=== PATIENT | male | born 1995 | race Caucasian/White ===

== ENCOUNTER 2018-08-04 13:39 | Emergency (ER) | payer SELFPAY ==
--- NOTE | 2018-08-04 14:00 | EDPHY ---
HPI/HX/ROS/PE/MDM Narrative: CHIEF COMPLAINT: Dizziness, right-sided numbness. HPI: This patient is a healthy 23-year-old male. He complains of numbness and dizziness for the past three days, beginning Saturday night. He endorses right- side numbness, primarily in his lower right jaw. His right arm and leg feel " out of whack", as if he has to focus to move them. He complains of associated nausea and room-spinning dizziness. He feels his speech is slow or difficult, but that he is thinking well. He denies any itchiness or rash. 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 Symptoms are somewhat relieved when he lies down. He denies any recent head injuries or other trauma. He denies having similar symptoms in the past. The patient presents today as his symptoms have persisted. He denies fever , headache, vomiting, diarrhea, cough or cold symptoms, urinary complaints, or other associated symptoms. Patient became tearful at several points during my history and exam. REVIEW OF SYSTEMS: Aside from elements discussed in the HPI, a comprehensive 10-point review of systems was reviewed and is negative. PMH: Denies. Patient reports his mother recently from colorectal cancer, denies other pertinent family history. SOCIAL HISTORY: Musician. Single. Lives in [place]. PHYSICAL EXAM: General:Patient is alert, in no acute distress, tearful. ENT:Eyes are normal to inspection. ENT inspection normal. Neck: Normal inspection. Full range of motion. Respiratory:No respiratory distress. Breath sounds normal bilaterally. Cardiovascular: Regular rate and rhythm. Strong peripheral pulses. Normal cap refill. Abdomen:The abdomen is nontender to palpation. There are no peritoneal signs. There are normal bowel sounds. Back: Normal to inspection. No tenderness to palpation. Skin: Normal color. No rash. Warm and dry. Extremities: Normal appearance. Full range of motion. Neuro: Oriented x3. Normal motor function. Normal sensory function. No pronator drift. Normal [id number]. Normal wsna-dl-judu. No dysdiadochokinesia. neurourologist intact. Normal fluent speech. No facial droop. ED Course: 23 y/o male presents with three day history of dizziness and right-sided numbness. The patient is neurologically intact on exam. He endorses considerable stress recently and became tearful at several points during my interview. Discussed further testing including MRI vs. outpatient followup. He will consider these options. 14:20 Reassessed patient. He declines MRI at this time. He does wish to try medication for symptom relief. Plan to administer 25mg PO meclizine. Reassessed. Patient is feeling some relief following medication administration. Plan to discharge home in good condition with referral to neurology. Follow up and return precautions discussed. He is comfortable with this plan. MDM: This patient presents with somewhat vague neurologic symptoms that appear to wax and wane. Given his age and lack of risk factors or family history, as well as the fact that there are no objective neurologic findings on exam, I think the patient is very low risk for CVA, SAH, or vascular disease. Given that in in addition to time course, the patient is certainly not a tPA candidate. MRI would be necessary to investigate these findings and rule out potentially serious disease, but he declines this for financial reasons. I have referred him to outpatient neurology. - Data Points Medications Given: Discontinued Medications Meclizine HCl (Meclizine Hcl) 25 mg PO EDNOW ONE Stop: 08/04/18 14:25 Last Admin: 08/04/18 14:29 Dose: 25 mg General Time Seen by Provider: 08/04/18 13:49 Initial Vital Signs: Initial Vital Signs Temperature (C) 36.6 C 08/04/18 13:44 Heart Rate 73 08/04/18 13:44 Respiratory Rate 16 08/04/18 13:44 Blood Pressure 154/74 H 08/04/18 13:44 O2 Sat (%) 97 08/04/18 13:44 O2 Delivery Mode Room Air Allergies/Adverse Reactions: No Known Allergies Allergy (Unverified 08/04/18 13:44) Home Medications: Medication Instructions Recorded NK [No Known Home Meds] 08/04/18 Departure - Departure Disposition: Home, Routine, Self-Care Condition: Good Instructions: Dizziness (ED) Additional Instructions: Use meclizine as needed for dizziness. This medication is available over the counter, use as directed on the packaging. Drink plenty of fluids. Return to the emergency department for headache, numbness, weakness, severe vertigo, neck pain, inability to tolerate fluids by mouth or other worsening of condition. If symptoms persist for more than 48 hours, follow up with your primary care physician and/or a neurologist for further evaluation. Referrals: Ever Keene DO [Doctor of Osteopathy] - As per Instructions Paola Alexandra MD [Medical Doctor] - As per Instructions Report Scribed for: Jurgen Lu Report Scribed by: Serenity Addison Date of Report: 08/04/18 Time of Report: 14:01 Physician Review and Approval Statement: Portions of this note were transcribed by an ED scribe. I personally performed the history, physical exam, and medical decision making; and confirm the accuracy of the information in the transcribed note.
[2018-08-04] MEDS ORDERED: MECLIZINE HCL 25 MG TAB PO ONE (14:24)
[2018-08-04 15:25] VITALS: BP 168/84
== END 2018-08-04 15:31 | disposition home or self-care (01) ==
DX: R42 Dizziness and giddiness (principal); R20.2 Paresthesia of skin

== ENCOUNTER → 2018-08-06 | Outpatient (CLI) | payer OTHER ==
[~2018-08-06] MED LIST: GADOBUTROL 10 ML VIAL IVP ONE
== END ==
LOC: FIMAGING 16:39
PROVIDERS: ATTEND Psychiatry & Neurology Neurology
DX: G37.9 Demyelinating disease of central nervous system, unspecified (principal)
CPT/HCPCS: A9585

== ENCOUNTER 2018-08-07 03:29 | Observation (INO) | payer SELFPAY ==
[2018-08-07] MEDS ORDERED: NS 1,000 ML IV ONE (03:48)
--- NOTE | 2018-08-07 03:48 | EDPHY ---
H & P Stated Complaint: "Diagnosed with MS last night", needs steroid Time Seen by Provider: 08/07/18 03:47 HPI/ROS: HPI CHIEF COMPLAINT: Recently diagnosed with MS. HISTORY OF PRESENT ILLNESS: 23-year-old male, presents emergency room stating that he was diagnosed with MS last night. He had an MRI. Dr. Meyers called him and updated him with his MRI results. Reported that he probably has MS. Was referred to Dr. Keene. Patient states he could not sleep. Decided come the emergency room for bryan morning stating that he needs a steroid dose. He states he had his MRI due to right-sided numbness and tingling mainly on his right face. Past Medical History: Denies significant medical Past Surgical History: Denies significant surgical history Social History: Denies drugs alcohol tobacco Family History: Noncontributory ROS REVIEW OF SYSTEMS: 10 Systems were reviewed and negative with the exception of the elements mentioned in the history of present illness. Exam Constitutional nontoxic, triage nursing summary reviewed, vital signs reviewed , awake/alert. Eyes normal conjunctivae and sclera, EOMI, PERRLA. HENT normal inspection, atraumatic, moist mucus membranes, no epistaxis, neck supple/ no meningismus, no raccoon eyes. Respiratory clear to auscultation bilaterally, normal breath sounds, no respiratory distress, no wheezing. Cardiovascular rate normal, regular rhythm, no murmur, no edema, distal pulses normal. Gastrointestinal soft, non-tender, no rebound, no guarding, normal bowel sounds, no distension, no pulsatile mass. Genitourinary no CVA tenderness. Musculoskeletal no midline vertebral tenderness, full range of motion, no calf swelling, no tenderness of extremities, no meningismus, good pulses, neurovascularly intact. Skin pink, warm, & dry, no rash, skin atraumatic. Neurologic awake, alert and oriented x 3, AAOx3, moves all 4 extremities equally, motor intact, sensory intact, CN II-XII intact, normal cerebellar, normal vision, normal speech. Psychiatric normal mood/affect. Heme/Lymph/Immune no lymphadenopathy. Differential Diagnosis: Includes but is not limited to in a particular order insomnia, anxiety, MS, requesting steroids Medical Decision Making: Plan for this patient will touch base with Neurology, determine what dose of steroids he may need. Re-evaluation: 05: I spoke with Dr. Benson, discussed case in detail. Recommends admission for MS flare, IV Solu-Medrol. 1 g. Spoke with the hospitalist service Dr. Nava agrees to admit the patient. Source: Patient - Personal History Current Tetanus Diphtheria and Acellular Pertussis (TDAP): No - Medical/Surgical History Hx Asthma: No Hx Chronic Respiratory Disease: No Hx Diabetes: No Hx Cardiac Disease: No Hx Renal Disease: No Hx Cirrhosis: No Hx Alcoholism: No Hx HIV/AIDS: No Hx Splenectomy or Spleen Trauma: No Other PMH: MS - Social History Smoking Status: Never smoked Constitutional: Initial Vital Signs Temperature (C) 36.5 C 08/07/18 03:30 Heart Rate 76 08/07/18 03:30 Respiratory Rate 18 08/07/18 03:30 Blood Pressure 171/87 H 08/07/18 03:30 O2 Sat (%) 98 08/07/18 03:30 O2 Delivery Mode Room Air Allergies/Adverse Reactions: No Known Allergies Allergy (Verified 08/07/18 08:22) Home Medications: Medication Instructions Recorded Acetaminophen [Tylenol 325mg (*)] 650 mg PO Q4HRS PRN tab 08/07/18 predniSONE 60 mg PO DAILY #12 tablet 08/07/18 Medical Decision Making - Data Points Laboratory Results: Laboratory Results 08/07/18 04:05 08/07/18 04:05 Medications Given: Discontinued Medications Sodium Chloride (Ns) 1,000 mls @ 0 mls/hr IV EDNOW ONE; Wide Open PRN Reason: Protocol Stop: 08/07/18 03:49 Last Admin: 08/07/18 04:08 Dose: 1,000 mls Methylprednisolone Sodium (Succinate 1 gm/ Dextrose) 100 mls @ 100 mls/hr IV ONCE ONE Stop: 08/07/18 06:29 Last Admin: 08/07/18 05:42 Dose: 100 mls Prednisone (Prednisone) 60 mg PO DAILY [facility] Stop: 02/03/19 12:14 Last Admin: 08/07/18 13:09 Dose: 60 mg Departure - Departure Disposition: [facility] Clinical Impression: Multiple sclerosis Condition: Fair
[2018-08-07 04:27] LABS: PLATELET COUNT 238 10^3/uL (150-400)
[2018-08-07] MEDS ORDERED: methylPREDNISolone SOD SUCC 125 MG/2 ML VIAL IVP ONE (05:13)
[2018-08-07] MEDS ORDERED: ACETAMINOPHEN 325 MG TAB PO PRN (05:21)
[2018-08-07] MEDS ORDERED: ONDANSETRON DISINTEGRATING 4 MG TAB PO PRN (05:21)
[2018-08-07] MEDS ORDERED: ONDANSETRON 4 MG/2 ML VIAL IVP PRN (05:21)
[2018-08-07] MEDS ORDERED: methylPREDNISolone SOD SUCC 1 GM in D5W 100 ML IV SCH (05:30)
[2018-08-07] MEDS ORDERED: methylPREDNISolone SOD SUCC 1 GM in D5W 100 ML IV ONE (05:30)
--- NOTE | 2018-08-07 05:43 | PDGENHP ---
History and Physical - Chief Complaint Numbness - History of Present Illness 23 yo M presents with numbness, weakness, and poor coordination. He first noticed symptoms 6 days ago. He describes R facial numbness, subtle RUE/RLE weakness, unsteady gait, and mild R-sided discoordination. He was seen by Dr. Meyers of neurology yesterday who ordered an MRI. The results of this are concerning for new diagnosis MS. Dr. Meyers called the patient last night and told him to come in for steroid treatment and admission. He denies other symptoms including infectious ROS. Case discussed with ED physician Dr. Rice; records reviewed in EMR. History Information - Allergies/Home Medication List Allergies/Adverse Reactions: No Known Allergies Allergy (Unverified 08/07/18 03:30) Home Medications: NK [No Known Home Meds] 08/04/18 [Last Taken Unknown] I have personally reviewed and updated: family history, medical history - Past Medical History no pertinent PMH - Surgical History Reports: no pertinent surgical hx - Family History Additional family history: Denies family hx of MS - Social History Smoking Status: Never smoked Review of Systems Review of Systems: ROS: 10pt was reviewed & negative except for what was stated in HPI & below Physical Exam Physical Exam: Temp Pulse Resp BP Pulse Ox 36.5 C 76 18 171/87 H 98 08/07/18 03:30 08/07/18 03:30 08/07/18 03:30 08/07/18 03:30 08/07/18 03:30 Constitutional: no apparent distress, not in pain Eyes: PERRL, EOMI Ears, Nose, Mouth, Throat: moist mucous membranes, no oral mucosal ulcers Cardiovascular: regular rate and rhythym, no murmur, rub, or gallop Respiratory: no respiratory distress, clear to auscultation Gastrointestinal: normoactive bowel sounds, soft, non-tender abdomen Skin: warm, normal color Musculoskeletal: no muscle tenderness, normal joint ROM Neurologic: AAOx3, numbness (R, upper face), other (Finger to nose and heel to isbell abnormal on R side) Psychiatric: interacting appropriately, not anxious Lab Data & Imaging Review 08/07/18 04:05 08/07/18 04:05 WBC 7.72 10^3/uL (3.80-9.50) 08/07/18 04:05 RBC 5.18 10^6/uL (4.40-6.38) 08/07/18 04:05 Hgb 15.5 g/dL (13.7-17.5) 08/07/18 04:05 Hct 45.3 % (40.0-51.0) 08/07/18 04:05 MCV 87.5 fL (81.5-99.8) 08/07/18 04:05 MCH 29.9 pg (27.9-34.1) 08/07/18 04:05 MCHC 34.2 g/dL (32.4-36.7) 08/07/18 04:05 RDW 12.9 % (11.5-15.2) 08/07/18 04:05 Plt Count 238 10^3/uL (150-400) 08/07/18 04:05 MPV 9.1 fL (8.7-11.7) 08/07/18 04:05 Neut % (Auto) 45.1 % (39.3-74.2) 08/07/18 04:05 Lymph % (Auto) 43.4 % (15.0-45.0) 08/07/18 04:05 [place] % (Auto) 8.5 % (4.5-13.0) 08/07/18 04:05 Eos % (Auto) 2.1 % (0.6-7.6) 08/07/18 04:05 Baso % (Auto) 0.6 % (0.3-1.7) 08/07/18 04:05 Nucleat RBC Rel Count 0.0 % (0.0-0.2) 08/07/18 04:05 Absolute Neuts (auto) 3.48 10^3/uL (1.70-6.50) 08/07/18 04:05 Absolute Lymphs (auto) 3.35 10^3/uL (1.00-3.00) H 08/07/18 04:05 Absolute Monos (auto) 0.66 10^3/uL (0.30-0.80) 08/07/18 04:05 Absolute Eos (auto) 0.16 10^3/uL (0.03-0.40) 08/07/18 04:05 Absolute Basos (auto) 0.05 10^3/uL (0.02-0.10) 08/07/18 04:05 Absolute Nucleated RBC 0.00 10^3/uL (0-0.01) 08/07/18 04:05 Immature Gran % 0.3 % (0.0-1.1) 08/07/18 04:05 Immature Gran # 0.02 10^3/uL (0.00-0.10) 08/07/18 04:05 Sodium 141 mEq/L (135-145) 08/07/18 04:05 Potassium 4.1 mEq/L (3.3-5.0) 08/07/18 04:05 Chloride 103 mEq/L (97-110) 08/07/18 04:05 Carbon Dioxide 27 mEq/l (22-31) 08/07/18 04:05 Anion Gap 11 mEq/L (6-14) 08/07/18 04:05 BUN 16 mg/dL (7-23) 08/07/18 04:05 Creatinine 0.9 mg/dL (0.7-1.3) 08/07/18 04:05 Estimated GFR > 60 08/07/18 04:05 Glucose 96 mg/dL (70-100) 08/07/18 04:05 Calcium 9.8 mg/dL (8.5-10.4) 08/07/18 04:05 Assessment & Plan Assessment: 23 yo M presents with new onset MS. Plan: 1. Multiple Sclerosis, acute flare - New diagnosis for this patient. MRI obtained by Dr. Meyers on day prior to admission revealed multiple white matter lesions with an active lesions on R cerebellar peduncle. Patient is complaining of R facial numbness, mild R-sided weakness, and has R-sided dysmetria on exam. - Admit for observation - Methylprednisolone 1 g now - Neurology consultation placed Diet - Regular Code - Full Ppx - Low risk, ambulate TID Dispo - Admit under observation status
[2018-08-07 08:08] VITALS: BP 164/92
--- NOTE | 2018-08-07 09:28 | HOSPPROG ---
Hospitalist Progress Note Assessment/Plan: 23 yo M presents with new onset MS. He had an MRI that was concerning and spoke with Dr Meyers. He was admitted for further evaluation. *Multiple Sclerosis, acute flare - New diagnosis - MRI revealed multiple white matter lesions with an active lesions on R cerebellar peduncle. - patient has r facial numbness, mild r side weakness - Methylprednisolone 1 g given - Neurology recommended a prednisone taper this week w further f/u with Dr Man in the OP setting *HTN -will cont monitoring *Plan: dc today Subjective: Johnnie has no complaints x some numbness to his r cheek area. Objective: Vital Signs Temp Pulse Resp BP Pulse Ox 37.0 C 72 16 164/92 H 97 08/07/18 08:05 08/07/18 08:05 08/07/18 08:05 08/07/18 08:05 08/07/18 08:05 08/06/18 08/07/18 08/08/18 05:59 05:59 05:59 Intake Total 1030 150 Balance 1030 150 - Physical Exam Constitutional: no apparent distress, appears nourished, not in pain Eyes: PERRL Ears, Nose, Mouth, Throat: hearing normal Cardiovascular: regular rate and rhythym Respiratory: no respiratory distress Gastrointestinal: soft, non-tender abdomen Skin: warm Musculoskeletal: full muscle strength Neurologic: AAOx3 Psychiatric: interacting appropriately ICD10 Worksheet Patient Problems: Problems Problem Status Onset Multiple sclerosis Acute
[2018-08-07] MEDS ORDERED: predniSONE 20 MG TAB PO SCH (12:15)
--- NOTE | 2018-08-07 12:38 | NEUROPROG ---
Assessment: HOSPITAL NEUROLOGY CONSULT REQUESTING: Seven Nava MD REASON: MS HPI: 23 year old man presented to the hospital early AM namely with insomnia, but also concern of a STAT MRI brain wow done yesterday. He had seen Dr. Meyers yesterday for complaints of right face numbness and right- sided weakness since 08/01. He also notes some mild sense of dizziness and nausea. MRI brain wow was done which showed areas of chronic demyelination in the juxtacortical/periventricular white matter and an acute area of inflammatory demyelination in the right cerebellar peduncle concerning for MS. Dr. Meyers called the patient and advised he come to the ED for steroid treatment , but at that time he declined. Patient states his symptoms have largely resolved, and he really came to the ED because he hadn't slept in 6 nights and feels like the insomnia might be from the issue related to the MRI. He got a 1g dose of IV methlyprednisolone this morning and feels ongoing improvement. He states he only really feels a small patch of tingling in the right cheek, but no weakness, dizziness, nausea. He denies any prior history of neurologic symptoms. No Lhermitte/Uhthoff phenomenon. No bowel/bladder issues. No change in speech, vision or swallowing function. ROS: As per the HPI, otherwise a complete 12 point ROS was performed and is negative ALLERGIES AND MEDS: As recorded in the EMR - reviewed and reconciled PFSH: As per the intake H&P by Dr. Nava from today EXAM: VS reviewed in EMR GEN: WDWN sitting in NAD HEENT: NCAT, sclera anicteric, conjunctiva not injected, MMM, oropharynx clear, no scalp tenderness NECK: supple, nontender, no meningismus CV: RRR s1 s2 wo m/r/c/g. Carotid pulses 2+ wo bruit NEURO: MS: awake, alert, oriented to all spheres. Speech nondysarthric. No language disturbance. Follows commands. Attends to both sides. Recent/remote memory grossly intact. Mood euthymic. Good fund of knowledge. CN: pupils 4mm round and reactive. No APD. Fundi with sharp discs. VFF. Primary gaze centered. No BARBARA. Full ocular motility. Facial sensation with mildly diminished sensation in a small patch of the right cheek. Face symmetric. Hearing grossly intact to finger rub. Palatoglossal movements intact. Shoulder shrug and head turn strong. MOTOR: normal bulk/tone. No adventitial movements. Full power throughout. SENSORY: intact to all modalities throughout. No extinction. COORD: no ataxia FN/HS. Gale preserved. Romberg neg. REFLEX: plantars down. No clonus. DTRS 2/4. GAIT: rises unassisted. Narrow base. Intact stride length/heel strike/toe lift /arm swing. Turns with 2 steps. Able to tandem without difficulty. DATA REVIEW: Labs reviewed in EMR PERSONALLY INTERPRETED RESULTS AND DATA: MRI brain wow reviewed as per the HPI IMPRESSION AND RECOMMENDATIONS: // SUSPECT RR MS Patient with neurologic symptoms referrable to the active lesion on the MRI brain wow. Very likely to be MS, with MRI brain evidence of dissemination of lesions in space/time. He has no disabling signs/symptoms at this point. He got 1g IV methylprednisolone. Given the lack of disabling features, I recommended he be transitioned to a prednisone 60mg daily regimen with taper. We did review starting a workup to exclude other possible mimics of MS, but he would rather visit with our MS team next week to discuss first, which I think is reasonable. We discussed ED return parameters including, but not limited to, vision loss, new weakness, new sensory loss, bowel/bladder disturbance, speech/language changes, gait change, swallowing difficulty, change in voice, fevers, neck stiffness/pain. I provided contact info for our office again, and he will make an appointment for next week with SAAD Farmer or Dr. Man. Objective: Vital Signs Temp Pulse Resp BP Pulse Ox 37.0 C 72 16 164/92 H 97 08/07/18 08:05 08/07/18 08:05 08/07/18 08:05 08/07/18 08:05 08/07/18 08:05 08/06/18 08/07/18 08/08/18 05:59 05:59 05:59 Intake Total 1030 150 Balance 1030 150 Allergies/Adverse Reactions: No Known Allergies Allergy (Verified 08/07/18 08:22)
--- NOTE | 2018-08-07 13:42 | GDS ---
DISCHARGE DIAGNOSES: 1. Suspected multiple sclerosis. 2. Hypertension. HISTORY OF PRESENT ILLNESS: Briefly, the patient is a 23-year-old male, who presented to the [facility] in the morning because he had insomnia, but also he had a stat MRI done because he had complaints o f right face numbness and right-sided weakness since August 01. He also had some dizziness and na usea. The MRI brain showed areas of chronic demyelination in the juxtacortical/periventricular white matter and acute area of inflammatory demyelination in the right cerebellar peduncle concerning for MS. He was admitted after talking to Dr. Meyers and started IV steroids. He is feeling better today. He is still having some right facial numbness, but overall his gait is steady and his weakness has r esolved. He will be discharged home and further followup with Dr. Man or Oc Forte, phys yari assistant store manager sales. HOSPITAL COURSE: 1. Most likely multiple sclerosis, acute flare. He was given methylprednisolone 1 g in the ER. He will be on a prednisone taper over the week and follow up with Dr. Man. 2. Hypertension. The patient has been under significant stress with the loss of his mom and being o n his own. I have given him the name of a primary care provider. This needs to be monitored and onofre ated if continues to be elevated. DISCHARGE CONDITION: Stable. Blood pressure 140/72, heart rate is 73, respiratory rate of 16, O2 sa ts on room air 96%, temperature 36.7 Celsius. MEDICATIONS AT DISCHARGE: Please see the EMR. DISCHARGE INSTRUCTIONS: 1. Take the prednisone as instructed. 2. To see Oc Forte, physician assistant store manager sales, or Dr. Man next week for close followup care i n regard to his multiple sclerosis. 3. He has been given the name of Dr. Domenic Palma for followup appointment in regard to his hypertensi on. /[id number]/MODL
== END 2018-08-07 14:34 | disposition home or self-care (01) ==
LOC: F3N 06:09
PROVIDERS: ADMIT Student in an Organized Health Care Education/Training Program; ATTEND Internal Medicine
DX: G35 Multiple sclerosis (principal); I10 Essential (primary) hypertension
CPT/HCPCS: G0378; J2930; J7512

== ENCOUNTER → 2018-08-21 | Outpatient (CLI) | payer OTHER | LOC: FIMAGING 06:28 | PROVIDERS: ATTEND Physician Assistant Medical | DX: G35 Multiple sclerosis (principal); M50.822 Other cervical disc disorders at C5-C6 level | CPT/HCPCS: A9585 ==

== ENCOUNTER 2018-11-17 12:20 | Emergency (ER) | payer OTHER ==
[2018-11-17] MEDS ORDERED: methylPREDNISolone SOD SUCC 1 GM in NS 100 ML IV ONE (14:12)
--- NOTE | 2018-11-17 14:15 | EDPHY ---
H & P Stated Complaint: MS FLARE LAST 5 DAYS /INCREASING LOSS OF FUNCTION R SIDE Time Seen by Provider: 11/17/18 13:19 HPI/ROS: CHIEF COMPLAINT: Right-sided numbness, weakness, history of multiple sclerosis HISTORY OF PRESENT ILLNESS: The patient has a history of multiple sclerosis. He presents to the ED with several days of increasing right-sided numbness, weakness and loss of coordination. Patient's symptoms are similar to his presentation mid July 2018 when he was diagnosed with active MS. The patient has recently completed a prednisone taper and is scheduled to have his last dose of prednisone tomorrow. Given his symptoms today he was referred to the emergency department by his neurologist for brain MRI and cervical spine MRI evaluation. The patient denies any fever, cough or congestion. He denies any history of fall or trauma. He denies additional acute complaints. The patient reports that his symptoms are moderate in nature. He is still able to ambulate , eat and care for himself. REVIEW OF SYSTEMS: A comprehensive 10 point review of systems is otherwise negative aside from elements mentioned in the history of present illness. Source: Patient Exam Limitations: No limitations - Personal History Current Tetanus Diphtheria and Acellular Pertussis (TDAP): Unsure - Medical/Surgical History Hx Asthma: No Hx Chronic Respiratory Disease: No Hx Diabetes: No Hx Cardiac Disease: No Hx Renal Disease: No Hx Cirrhosis: No Hx Alcoholism: No Hx HIV/AIDS: No Hx Splenectomy or Spleen Trauma: No Other PMH: MS - Social History Smoking Status: Never smoked - Physical Exam Exam: General Appearance: Alert, no distress Eyes: Pupils equal and round no pallor or injection ENT, Mouth: Mucous membranes moist Respiratory: There are no retractions, lungs are clear to auscultation Cardiovascular: Regular rate and rhythm Gastrointestinal: Abdomen is soft and nontender, no masses, bowel sounds normal Neurological: Alert and oriented x4, 5/5 strength noted all 4 extremities, slight discoordination appreciated with fine motor movement in the right upper extremity and hand, patient reports decreased sensation to light touch in his right face, right arm and leg. Skin: Warm and dry, no rashes Musculoskeletal: Neck is supple nontender Extremities: symmetrical, full range of motion Psychiatric: Patient is oriented X 3, there is no agitation Constitutional: Initial Vital Signs Temperature (C) 36.6 C 11/17/18 12:23 Heart Rate 81 11/17/18 12:23 Respiratory Rate 18 11/17/18 12:23 Blood Pressure 164/78 H 11/17/18 12:23 O2 Sat (%) 96 11/17/18 12:23 O2 Delivery Mode Room Air Allergies/Adverse Reactions: No Known Allergies Allergy (Verified 11/17/18 12:23) Home Medications: Medication Instructions Recorded Acetaminophen [Tylenol 325mg (*)] 650 mg PO Q4HRS PRN tab 08/07/18 predniSONE 60 mg PO DAILY #12 tablet 08/07/18 Losartan Potassium 11/17/18 Medical Decision Making - Diagnostics Imaging Results: Imaging Impressions Brain MRI 11/17/18 14:06 Impression: Interval worsening of multiple sclerosis, with new lesions, as above, with a small enhancing right occipital lesion suggesting active demyelination and a new dominant left basal gangliar/thalamic lesion. E:amm Cervical Spine MRI 11/17/18 14:07 Impression: 1. Slight improvement in a right cerebellar peduncular lesion, with additional brain lesions noted on MR today, that are seen on the comparison. No cervical cord lesions identified. 2. Stable disk protrusion at C5-C6, with minimal spinal canal narrowing, without significant neural foraminal stenosis. Findings discussed with Aleks Polanco M.D., on November 17, 2018 at 1820. E:am ED Course/Re-evaluation: Consultation was made with Dr. Capps from Neurology. The patient will undergo a brain MRI and cervical spine MRI with and without contrast. Patient is given 1 g of IV Solu-Medrol in the emergency department. The patient will follow up tomorrow with Oc Forte who will make arrangements for outpatient IV Solu-Medrol therapy. The patient is ambulatory and appropriate for outpatient management. Differential Diagnosis: Differential diagnosis considered includes acute exacerbation of multiple sclerosis, stroke, TIA, intracranial mass - Data Points Medications Given: Discontinued Medications Methylprednisolone Sodium Succinate 1 gm/ Sodium Chloride 108 mls @ 108 mls/hr IV EDNOW ONE Stop: 11/17/18 15:11 Last Admin: 11/17/18 14:51 Dose: 108 mls Departure - Departure Disposition: Home, Routine, Self-Care Clinical Impression: Multiple sclerosis Condition: Good Instructions: Multiple Sclerosis (DC) Additional Instructions: 1. Please contact Oc Forte tomorrow to discuss outpatient IV Solu- Medrol therapy Referrals: Oc Forte PA [Physician Administrative Underwriter] - As per Instructions
[2018-11-17] MEDS ORDERED: GADOBUTROL 10 ML VIAL IVP ONE (17:11)
[2018-11-17 18:57] VITALS: BP 155/88
== END 2018-11-17 18:57 | disposition home or self-care (01) ==
DX: G35 Multiple sclerosis (principal); R20.0 Anesthesia of skin; R53.1 Weakness
CPT/HCPCS: 96365; A9585; J2930

== ENCOUNTER 2018-11-18 14:05 | Emergency (ER) | payer OTHER ==
[2018-11-18 14:12] VITALS: BP 158/74
== END 2018-11-18 14:15 | disposition left against medical advice (07) ==
DX: Z53.21 Procedure and treatment not carried out due to patient leaving prior to being seen by health care provider (principal)